=== PATIENT | female | born 1945 | race Caucasian/White ===

== ENCOUNTER 2017-04-19 15:22 | Emergency (ER) | payer MEDICARE, OTHER ==
[2017-04-19 16:25] LABS: Hematocrit 33.3 % (37.0-47.0); Hemoglobin 10.8 gm/dL (12.5-16.0); Mean Cell Volume 89.5 fl (78-100); Mean Corpuscular Hgb Conc 32.4 g/dl (32-36); Mean Platelet Volume 10.1 fl (6.0-9.5); Neutrophil # 6.1 K/mm3 (1.3-6.0); Neutrophil % 66.2 % (42-75.0); Platelet Count 289 K/mm3 (150-450); Red Blood Count 3.72 M/mm3 (4.2-5.4); Red Cell Distribution Width 13.9 % (11.5-14.0); White Blood Count 9.2 K/mm3 (4.0-10.5)
[2017-04-19 16:43] LABS: Albumin * 3.3 gm/dl (3.4-5.0); Anion Gap 15.8 mmol/L (6.8-13.8); BUN/Creatinine Ratio 18.2 (9.0-21.6); Bilirubin, Total 0.4 mg/dL (0.0-1.1); CRP 3.2 mg/dL (0.0-0.9); Ca. Corrected For Albumin 8.9 mg/dL (8.4-10.2); Calcium * 8.7 mg/dL (7.9-10.9); Potassium 4.8 mmol/L (3.4-4.6); Total Protein 7.4 gm/dL (6.2-8.2)
[2017-04-19 17:29] VITALS: BP 138/62
--- NOTE | 2017-04-19 17:34 | ERNOTE ---
Lower Extremity HPI - Narrative Date of Service: 04/19/17 - General Lower Extremities Pain: ankle: left - wound Time Seen by Provider: 04/19/17 15:31 Source: patient Exam Limitations: no limitations - Immun/Allergies/Home Medications Immunizations: IMMUNIZATION HX Immunizations Up to Date Yes History of Influenza Vaccine Yes Hx Pneumococcal Vaccination Yes Allergies/Adverse Reactions: Allergies Allergy/AdvReac Type Severity Reaction Status Date / Time vancomycin Allergy Severe Shortness Verified 04/19/17 15:37 of Breath Cephalosporins Allergy Intermediate Hives Verified 04/19/17 15:37 adhesive Allergy Mild skin Verified 04/19/17 15:37 irritation, can use paper tape or cloth tape bacitracin Allergy Mild BREAK OUT Verified 04/19/17 15:37 [From Neosporin ([id number])] bacitracin zinc Allergy Mild BREAK OUT Verified 04/19/17 15:37 [From Neosporin ([id number])] cephalexin Allergy Mild SWELLING Verified 04/19/17 15:37 latex Allergy Mild BLISTERS/IT Verified 04/19/17 15:37 AGUSTINA neomycin sulfate Allergy Mild BREAKS OUT Verified 04/19/17 15:37 [From Neosporin ([id number])] Penicillins Allergy Mild TURN RED Verified 04/19/17 15:37 polymyxin B Allergy Mild BREAKS OUT Verified 04/19/17 15:37 [From Neosporin ([id number])] silver sulfadiazine Allergy Mild GOODMAN SKIN Verified 04/19/17 15:37 [From Silvadene] sulfamethoxazole Allergy Mild RED AND Verified 04/19/17 15:37 ITCHES trimethoprim Allergy Mild RED AND Verified 04/19/17 15:37 ITCHES cat dander Allergy Verified 04/19/17 15:37 perfume Allergy Verified 04/19/17 15:37 Carbapenems AdvReac Mild Nausea Verified 04/19/17 15:37 ciprofloxacin AdvReac Mild SICK TO Verified 04/19/17 15:37 STOMACH morphine AdvReac Mild Nausea Verified 04/19/17 15:37 aspirin AdvReac Unknown "GOODMAN Verified 04/19/17 15:37 STOMACH" gentamicin [Gentamicin] AdvReac Unknown OFF Verified 04/19/17 15:37 BALANCE/FALLING Home Medications: HOME MEDICATIONS Acetaminophen [Pain Relief Extra Strength] 1,000 mg PO Q8H PRN 05/22/16 [Last Taken Unknown] Alendronate Sodium [Fosamax] 70 mg PO ONCE 05/22/16 [Last Taken Unknown] Carvedilol [Coreg] 6.25 mg PO BID 05/22/16 [Last Taken Unknown] Cholecalciferol (Vitamin D3) [Vitamin D3] 2,000 unit PO DAILY 05/22/16 [Last Taken Unknown] Duloxetine HCl [Cymbalta] 30 mg PO DAILY 05/22/16 [Last Taken Unknown] Furosemide [Lasix] 40 mg PO DAILY 05/22/16 [Last Taken Unknown] Gabapentin [Neurontin] 600 mg PO HS 05/22/16 [Last Taken Unknown] Levothyroxine Sodium [Synthroid] 137 mcg PO DAILY 05/22/16 [Last Taken Unknown] Loratadine [Claritin] 10 mg PO DAILY 05/22/16 [Last Taken Unknown] Montelukast Sodium [Singulair] 10 mg PO HS 05/22/16 [Last Taken Unknown] Multivitamins [Multivitamin Didier] 1 cap PO DAILY 05/22/16 [Last Taken Unknown] Omeprazole [Prilosec] 20 mg PO BID 05/22/16 [Last Taken Unknown] #103/Iron Fumarate/FA [ Tablet] 1 each PO DAILY [Last Taken Unknown] Simvastatin [Zocor] 20 mg PO HS 05/22/16 [Last Taken Unknown] amLODIPine BESYLATE [Norvasc] 7.5 mg PO HS 05/22/16 [Last Taken Unknown] sitaGLIPtin PHOSPHATE [Januvia] 100 mg PO DAILY 05/22/16 [Last Taken Unknown] Albuterol Sulfate [Proair Hfa] 1 - 2 puff IH Q6H PRN 06/30/16 [Last Taken Unknown] Enoxaparin Sodium [Lovenox] 30 mg SC Q24H 9 Days disp.syrin 07/01/16 [Last Taken Unknown] oxyCODONE HCL/ACETAMINOPHEN [Percocet 5 MG/325 MG] 1 - 2 tab PO Q4H PRN #60 tablet 07/01/16 [Last Taken Unknown] Clindamycin HCl [Cleocin HCl] 300 mg PO Q6H #28 capsule 07/02/16 [Last Taken Unknown] Doxycycline Monohydrate 100 mg PO BID #14 tablet 04/19/17 [Last Taken Unknown] - History of Present Illness Narrative: 71-year-old female presents to the emergency room for left lower venous stasis ulcer that has gotten worse over the last 2 days. Patient states that she has been treating it with [id number] antibiotic ointment and a dry dressing. Date (Duration): 04/19/17 Occurred: last week Location of Incident: home Method of Injury: Reports: no apparent injury Other Injuries: Reports: none Review of Systems - Review of Systems Constitutional: Present: no symptoms reported EYE: Present: no symptoms reported ENT: Present: no symptoms reported Respiratory: Present: no symptoms reported Cardiology: Present: no symptoms reported Gastrointestinal/Abdominal: Present: no symptoms reported Genitourinary: Present: no symptoms reported Musculoskeletal: Present: See HPI Skin: Present: See HPI, change in color Neurological: Present: no symptoms reported Endocrine: Present: no symptoms reported Hematologic/Lymphatic: Present: no symptoms reported Psych: Present: no symptoms reported All Other Systems: All systems neg except as marked - Patient's Past Medical History Patient History - Medical: Anxiety, Diabetes Type 2, Depression, GERD, Hypothyroidism, Osteoarthritis Patient History - Cardiac/Respiratory: Bronchitis, Hypertension Patient History - Cancer: No Hx of Cancer Patient History - Surgical Procedures: Appendectomy, Cholecystectomy, Total Knee Replacement, Tubal Ligation, T & A, Other Patient History - Other: None - Family History Mother Family History - Medical: , No pertinent hx Family History - Cardiac/Respiratory: Hypertension Father Family History - Medical: , No pertinent hx Family History - Cardiac/Respiratory: No pertinent hx - Social History Living Situations: alone Abuse History: No History of abuse Psych History: Hx of Anxiety, Hx of Depression Smoking Status: Never smoker Have you smoked in the past 12 months: No Do you dip or chew tobacco: No Alcohol Use: none Drug Use: none - Immunizations Immunizations Up to Date: Yes Hx Pneumococcal Vaccination: Yes History of Influenza Vaccine: Yes Physical Exam - Physical Exam Narrative: patients had a would on her left later leg above her ankle. she states that last week it was dime size. This week it has grown in size to 2.5cm. area surrounding is red, warm and some macerated tissue present. patient has a history of venous stasis ulcers General Appearance: Present: wd/wn, alert, no apparent distress Head Exam: Present: normal inspection, no evidence of injury Eye Exam: Normal inspection: bilateral, PERRL: bilateral, EOMI: bilateral Ears, Nose, Throat: Present: normal ENT inspection, normal pharynx Neck: Present: normal inspection, nontender Respiratory: Present: no respiratory distress, normal breath sounds, no accessory muscle use, chest nontender Cardiovascular/Chest: Present: regular rate, rhythm, no murmur, normal peripheral pulses Peripheral Pulses: N=norm/S=strong/W=weak/B=bound/A=absent: Dorsalis-pedis (R): Normal, Dorsalis-pedis (L): Normal Gastrointestinal/Abdominal: Present: normal bowel sounds, nontender, nondistended, soft, no organomegaly Back Exam: Present: normal inspection, normal range of motion, no CVA tenderness , no vertebral tenderness Extremity Exam: Present: normal except - - left lower ext, pedal edema, joint redness, extremity edema Neurological Exam: Present: alert, oriented, normal mood/affect, no motor/ sensory deficits Skin Exam: Present: normal color, warm/dry Lymphatic Exam: Present: no adenopathy ED Progress - Results and Orders Patient's Lab Results:: I have reviewed the patient's lab results. Results and Orders: no wbc elevation - Vital Signs Vital Signs: Vital Signs 04/19/17 15:32 Temperature 37.4 C Pulse Rate 61 Respiratory 16 Rate Blood Pressure 132/55 O2 Sat by Pulse 94 Oximetry - Progress/Reassessment Chief Complaint: Lower Extremity Pain/ Injury Progress:: Unchanged Plan - Plan Plan: Patient will be started on oral antibiotics that she is taking in the past to help with her venous stasis ulcers. Patient has a follow-up appointment with Dr. Laura on Friday. patient sent home with dressing supplies and given information on how to change it. Departure Clinical Impression: Cellulitis Qualifiers: Site of cellulitis: extremity Site of cellulitis of extremity: lower extremity Laterality: left Qualified Code(s): L03.116 - Cellulitis of left lower limb - Departure Disposition: Home Follow Up Needed Condition: Good Instructions: Venous Stasis or Chronic Venous Insufficiency, Venous Ulcer, Easy -to-Read Additional Instructions: Continue any previous home medications. Follow-up with your primary care provider appointment. They have scheduled on Friday. Return to the emergency room if he develops any signs and symptoms of an increasing infection such as a fever swelling or increasing pain. Please take your vitamin 2 hours before after you take your antibiotic. Do not take your vitamin and antibiotic together. Referrals: Prabhu Laura MD [Primary Care Provider] - Prescriptions: Doxycycline Monohydrate 100 mg PO BID #14 tablet
== END 2017-04-19 17:48 | disposition home or self-care (01) ==
LOC: ER 15:22
DX: L03.116 Cellulitis of left lower limb (principal)

== ENCOUNTER 2017-08-13 11:00 | Emergency (ER) | payer MEDICARE, MEDICAID ==
[2017-08-13 11:53] LABS: Hematocrit 33.3 % (37.0-47.0); Hemoglobin 10.6 gm/dL (12.5-16.0); Mean Cell Volume 95.4 fl (78-100); Mean Corpuscular Hemoglobin 30.4 pg (27-31); Mean Corpuscular Hgb Conc 31.8 g/dl (32-36); Mean Platelet Volume 10.1 fl (6.0-9.5); Neutrophil % 68.4 % (42-75.0); Platelet Count 265 K/mm3 (150-450); Red Blood Count 3.49 M/mm3 (4.2-5.4); Red Cell Distribution Width 15.5 % (11.5-14.0); White Blood Count 7.4 K/mm3 (4.0-10.5)
[2017-08-13 12:07] LABS: Albumin * 2.8 gm/dl (3.4-5.0); Anion Gap 13.4 mmol/L (6.8-13.8); BUN/Creatinine Ratio 10.2 (9.0-21.6); Bilirubin, Total 0.5 mg/dL (0.0-1.1); Ca. Corrected For Albumin 9.5 mg/dL (8.4-10.2); Calcium * 8.9 mg/dL (7.9-10.9); Carbon Dioxide 24.1 mmol/L (24-32.6); Potassium 4.5 mmol/L (3.4-4.6); Total Protein 7.2 gm/dL (6.2-8.2)
[2017-08-13] MEDS ORDERED: ALBUTEROL SULFATE 2.5 MG/0.5 ML VIAL.NEB IH ONE ×2 (12:10→12:17)
--- NOTE | 2017-08-13 12:14 | ERNOTE ---
Time Seen by Provider: 08/13/17 12:05 Stated Complaint: COUGH,FEVER Presenting Symptoms:: cough Exam Limitations: no limitations Immunizations: IMMUNIZATION HX Immunizations Up to Date Yes History of Influenza Vaccine Yes Hx Pneumococcal Vaccination Yes Allergies/Adverse Reactions: Allergies vancomycin Allergy (Severe, Verified 08/13/17 11:10) Shortness of Breath Cephalosporins Allergy (Intermediate, Verified 08/13/17 11:10) Hives adhesive Allergy (Mild, Verified 08/13/17 11:10) skin irritation, can use paper tape or cloth tape bacitracin [From Neosporin ([id number])] Allergy (Mild, Verified 08/13/17 11: 10) BREAK OUT bacitracin zinc [From Neosporin ([id number])] Allergy (Mild, Verified 11:10) BREAK OUT cephalexin Allergy (Mild, Verified 08/13/17 11:10) SWELLING latex Allergy (Mild, Verified 08/13/17 11:10) BLISTERS/ITCHING neomycin sulfate [From Neosporin ([id number])] Allergy (Mild, Verified 11:10) BREAKS OUT Penicillins Allergy (Mild, Verified 08/13/17 11:10) TURN RED polymyxin B [From Neosporin ([id number])] Allergy (Mild, Verified 08/13/17 11 :10) BREAKS OUT silver sulfadiazine [From Silvadene] Allergy (Mild, Verified 08/13/17 11:10) GOODMAN SKIN skin became bright red sulfamethoxazole Allergy (Mild, Verified 08/13/17 11:10) RED AND ITCHES trimethoprim Allergy (Mild, Verified 08/13/17 11:10) RED AND ITCHES cat dander Allergy (Verified 08/13/17 11:10) perfume Allergy (Verified 08/13/17 11:10) Carbapenems Adverse Reaction (Mild, Verified 08/13/17 11:10) Nausea ciprofloxacin Adverse Reaction (Mild, Verified 08/13/17 11:10) SICK TO STOMACH morphine Adverse Reaction (Mild, Verified 08/13/17 11:10) Nausea aspirin Adverse Reaction (Unknown, Verified 08/13/17 11:10) "GOODMAN STOMACH" gentamicin [Gentamicin] Adverse Reaction (Unknown, Verified 08/13/17 11:10) OFF BALANCE/FALLING Home Medications: HOME MEDICATIONS Carvedilol [Coreg] 6.25 mg PO BID 05/22/16 [Last Taken Unknown] Cholecalciferol (Vitamin D3) [Vitamin D3] 2,000 unit PO DAILY 05/22/16 [Last Taken Unknown] Gabapentin [Neurontin] 600 mg PO HS 05/22/16 [Last Taken Unknown] Montelukast Sodium [Singulair] 10 mg PO HS 05/22/16 [Last Taken Unknown] Multivitamins [Multivitamin Didier] 1 cap PO DAILY 05/22/16 [Last Taken Unknown] #103/Iron Fumarate/FA [ Tablet] 1 each PO DAILY [Last Taken Unknown] sitaGLIPtin PHOSPHATE [Januvia] 50 mg PO DAILY 05/22/16 [Last Taken Unknown] Albuterol Sulfate [Proair Hfa] 1 - 2 puff IH Q6H PRN 06/30/16 [Last Taken Unknown] Cetirizine HCl [Zyrtec] 10 mg PO HS 04/30/17 [Last Taken Unknown] Cimetidine 400 mg PO BID 04/30/17 [Last Taken Unknown] Famotidine 40 mg PO BID 04/30/17 [Last Taken Unknown] Levothyroxine Sodium [Synthroid] 150 mcg PO DAILY 04/30/17 [Last Taken Unknown] Lisinopril [Zestril] 5 mg PO DAILY 04/30/17 [Last Taken Unknown] Atorvastatin Calcium [Lipitor] 10 mg PO DAILY 08/13/17 [Last Taken Unknown] Azithromycin [Zithromax] 500 mg PO DAILY #3 tablet 08/13/17 [Last Taken Unknown] predniSONE [Prednisone] 3 tab PO DAILY #12 tab 08/13/17 [Last Taken Unknown] - History of Present Ilness Narrative: Patient started to have URI symptoms about a week ago, mainly cough and congestion. She has a history of asthma, never smoked but has been exposed to second hand smoke for most of her life. Today she was at the wound center for her leg wound and was noticed to have a temperature of 101 Review of Systems - Review of Systems Constitutional: Present: chills. Absent: recent illness ENT: Present: nasal drainage. Absent: sore throat Respiratory: Present: shortness of breath, cough Cardiology: Absent: chest pain Gastrointestinal/Abdominal: Absent: nausea, vomiting, abdominal pain Genitourinary: Present: no symptoms reported Neurological: Absent: headache, weakness, numbness - Patient's Past Medical History Patient History - Medical: Anxiety, Diabetes Type 2, Depression, GERD, Hypothyroidism, Osteoarthritis Patient History - Cardiac/Respiratory: Bronchitis, Hypertension Patient History - Cancer: No Hx of Cancer Patient History - Surgical Procedures: Appendectomy, Cholecystectomy, Total Knee Replacement, Tubal Ligation, T & A, Other Patient History - Other: None LMP (females 10-50): Menopausal - Family History Mother Family History - Medical: , No pertinent hx Family History - Cardiac/Respiratory: Hypertension Father Family History - Medical: , No pertinent hx Family History - Cardiac/Respiratory: No pertinent hx Family History - Cancer: No pertinent family hx - Social History Living Situations: alone Abuse History: No History of abuse Psych History: Hx of Anxiety, Hx of Depression - Immunizations Immunizations Up to Date: Yes Hx Pneumococcal Vaccination: Yes History of Influenza Vaccine: Yes Physical Exam - Physical Exam General Appearance: Present: wd/wn, alert, no apparent distress Eye Exam: Normal inspection: bilateral Ears, Nose, Throat: Present: normal ENT inspection, normal pharynx Respiratory: Present: no respiratory distress - slightly increase rate, decreased breath sounds, expiration (prolonged), wheezing Cardiovascular/Chest: Present: regular rate, rhythm Neurological Exam: Present: alert, oriented, normal mood/affect Skin Exam: Present: normal color, warm/dry ED Progress - Results and Orders Patient's Lab Results:: I have reviewed the patient's lab results. - Vital Signs Patient's Vital Signs:: I have reviewed the patient's vital signs. Vital Signs: Vital Signs 08/13/17 08/13/17 08/13/17 11:05 11:17 11:42 Temperature 37.2 C Pulse Rate 73 77 76 Respiratory 21 H 24 H Rate Blood Pressure 136/65 O2 Sat by Pulse 96 94 95 Oximetry - X-Ray X-Ray #1 X-Ray: chest - bi basal atelectasis vs infiltrate Interpretation: Reviewed by me - Progress/Reassessment Chief Complaint: Upper Respiratory Symptoms Progress Note-Subjective: 08/13/17 12:50 discussed test results with patient, offered admission as possible pneumonia, patient would like to go home promised to return if symptoms worsen appointment with Dr Laura made Departure Clinical Impression: Pneumonia Qualifiers: Pneumonia type: due to unspecified organism Laterality: bilateral Lung location : lower lobe of lung Qualified Code(s): J18.9 - Pneumonia, unspecified organism - Departure Disposition: Home self-care Condition: Stable Instructions: Community-Acquired Pneumonia, Adult, [id number] Additional Instructions: return to the ER if you get worse otherwise follow up with Dr Laura as scheduled next week Referrals: Prabhu Laura MD [Primary Care Provider] - 08/19/17 1:00 pm Prescriptions: Azithromycin [Zithromax] 500 mg PO DAILY #3 tablet predniSONE [Prednisone] 3 tab PO DAILY #12 tab
[2017-08-13] MEDS ORDERED: predniSONE 20 MG TABLET PO ONE (12:51)
[2017-08-13] MEDS ORDERED: AZITHROMYCIN 250 MG TABLET PO ONE (12:51)
[2017-08-13] MEDS ORDERED: AZITHROMYCIN 250 MG TABLET ONE (12:52)
[2017-08-13] MEDS ORDERED: predniSONE 20 MG TABLET ONE (12:52)
[2017-08-13 13:05] VITALS: BP 142/74
== END 2017-08-13 12:58 | disposition home or self-care (01) ==
LOC: ER 11:00
DX: J18.9 Pneumonia, unspecified organism (principal); E11.9 Type 2 diabetes mellitus without complications; E03.9 Hypothyroidism, unspecified; I10 Essential (primary) hypertension